=== PATIENT | male | born 1960 | race Caucasian/White ===

== ENCOUNTER 2019-02-06 12:15 | Emergency (ER) | payer OTHER ==
[~2019-02-06] VITALS: Ht 170.2 cm; Wt 88.5 kg
[2019-02-06 12:16] VITALS: BP 143/77
[2019-02-06] MEDS ORDERED: ZOLP10TA1 PO (12:33)
[2019-02-06] MEDS ORDERED: PAX20 PO (12:33)
[2019-02-06] MEDS ORDERED: LEVO0.1T18 PO (12:33)
[2019-02-06] MEDS ORDERED: METO50TA34 PO (12:33)
[2019-02-06] MEDS ORDERED: CETI-32 PO (12:33)
[2019-02-06] MEDS ORDERED: VITD1000 PO (12:33)
[2019-02-06] MEDS ORDERED: SIMV20TA1 PO (12:34)
--- NOTE | 2019-02-06 12:48 | NUR ---
pt brought into the ed by ambulance c/o head injury s/p sz leading to a mechanical fall. perrla 5mm. head lac posteriorly. bleeding controlled. gcs 11. baseline is non verbal. caregiver at bedside. no truama or injury to airway. nka. pmh: sz, mild intellectuall disability.
--- NOTE | 2019-02-06 12:57 | NUR ---
bs 157 at [id number]
--- NOTE | 2019-02-06 13:00 | NUR ---
pmh update: mild intellecutal disability, htn, sz.
[2019-02-06] MEDS ORDERED: NACL 0.9% 500 ML IV SCH (13:02)
[2019-02-06 15:20] LABS: APPEARANCE,URINE CLEAR (CLEAR); BILIRUBIN,URINE NEGATIVE (NEGATIVE); BLOOD, URINE NEGATIVE (NEGATIVE); COLOR,URINE YELLOW (YELLOW); LEUKOCYTE ESTERASE ,URINE NEGATIVE (NEGATIVE); NITRITE, URINE NEGATIVE (NEGATIVE); UGLUCOSE NEGATIVE (NEGATIVE)
[2019-02-06 15:27] LABS: BASOPHILS # (AUTO) 0.1 K/uL (0.00-0.22); BASOPHILS % (AUTO) 0.4 % (0.0-2.0); EOSINOPHILS % (AUTO) 0.3 % (0.0-4.0); HEMATOCRIT 48.6 % (36-52); LYMPHOCYTES # (AUTO) 1.3 K/uL (2.0-11.5); LYMPHOCYTES % (AUTO) 8.1 % (20.5-51.1); MEAN CORPUSCULAR HEMOGLOBIN 30 pg (27-31); MEAN CORPUSCULAR HGB CONC 33 g/dL (33-37); MEAN CORPUSCULAR VOLUME 92.5 fL (80-94); MONOCYTES # (AUTO) 0.8 K/uL (0.8-1.0); MONOCYTES % (AUTO) 4.8 % (1.7-9.3); NEUTROPHILS # (AUTO) 13.6 K/uL (1.8-7.7); NEUTROPHILS % (AUTO) 86.4 % (42.2-75.2); PLATELET COUNT (AUTO) 199 K/uL (140-450); RED BLOOD CELL COUNT(AUTO) 5.26 MIL/uL (4.20-6.10); RED CELL DISTRIBUTION WIDTH 14.1 % (11.6-13.7); WHITE BLOOD COUNT (AUTO) 15.8 K/uL (4.8-10.8)
[2019-02-06 15:49] LABS: ALBUMIN 3.5 g/dL (3.4-5.0); ANION GAP 13.5 (8-16); CARBON DIOXIDE 26.1 mmol/L (21-32); POTASSIUM 3.6 mmol/L (3.5-5.1); TOTAL BILIRUBIN 0.5 mg/dL (0.0-1.0)
[2019-02-06] MEDS ORDERED: NEOMYCIN/POLYMYXIN/BACITRACIN 0.9 GM/1 PKT TP ONE (16:19)
--- NOTE | 2019-02-06 16:26 | NUR ---
APPLIED DRESSING TO BACK OF THE HEAD WITHOUT ANY ISSUES
--- NOTE | 2019-02-06 16:40 | NUR ---
IV removed, catheter intact and site benign. Applied folded 4x4 gauze and tape to stop bleeding.
[2019-02-06 16:43] VITALS: BP 135/75
--- NOTE | 2019-02-06 16:44 | NUR ---
Patient discharged with v/s stable. Written and verbal after care instructions given and explained. Patient verbalized understanding. Ambulatory with steady gait. All questions addressed prior to discharge. Advised to follow up with PMD.
== END 2019-02-06 16:44 | disposition home or self-care (01) ==
LOC: MED 12:15
DX: S01.01XA Laceration without foreign body of scalp, initial encounter (principal); G40.909 Epilepsy, unspecified, not intractable, without status epilepticus; Z79.899 Other long term (current) drug therapy; W22.8XXA Striking against or struck by other objects, initial encounter; Y93.89 Activity, other specified; Y92.89 Other specified places as the place of occurrence of the external cause; Y99.8 Other external cause status
CPT/HCPCS: 12002; 36415; 70450; 71045; 74176; 80053; 81003; 82948; 83605; 85025; 85610; 85730; 87040; 87086; 93005; 99284; Q0092